=== PATIENT | male | born 1945 | race Caucasian/White ===

== ENCOUNTER → 2023-12-18 11:05 | Outpatient (REF) | payer MEDICARE, SELFPAY ==
[2023-12-18 12:05] LABS: % Basophils 0.9 % (0-2); % Eosinophils 4.6 % (0-6); % Immature Granulocytes 0.9 % (0-0.5); % Lymphocytes 18.6 % (20.5-51.1); % Monocytes 11.8 % (1.7-9.3); % Neutrophils 63.2 % (42.2-75.2); Absolute Basophils 0.1 10^3/uL (0-0.2); Absolute Eosinophils 0.3 10^3/uL (0-0.7); Absolute Immature Granulocytes 0.1 10^3/uL (0-0.05); Absolute Lymphocytes 1.3 10^3/uL (1.2-3.4); Absolute Monocytes 0.8 10^3/uL (0.1-0.6); Absolute Neutrophils 4.3 10^3/uL (1.4-6.5); Hemoglobin 12.1 g/dL (13.0-18.0); Mean Corp Hgb Conc. 33.6 g/dL (33.0-37.0); Mean Corpuscular Hgb 33.9 pg (27.0-31.0); Mean Corpuscular Volume 100.8 fL (80.0-94.0); Mean Platelet Volume 9.4 fL (7.4-10.4); Nucleated Red Blood Cells % 0 % (-); Platelet Count 240 10^3/uL (130-400); Red Blood Cell Count 3.57 10^6/uL (4.70-6.10); Red Cell Dist. Width 13.1 % (11.5-14.5); White Blood Cell Count 6.8 10^3/uL (4.8-10.8)
[2023-12-18 12:11] LABS: Urine Albumin Trace (Neg - Trace); Urine Bilirubin Negative (Negative); Urine Character Clear (Clear); Urine Color Yellow; Urine Glucose Negative (Negative); Urine Ketone Negative (Negative); Urine Leukocyte 2+ (Negative); Urine Nitrite Negative (Negative); Urine Occult Blood Negative (Negative); Urine Specific Gravity 1.015 (<1.030); Urine Urobilinogen Negative (Neg - 1+)
[2023-12-18 12:31] LABS: Urine Bacteria Few (Negative); Urine Red Blood Cell 0-2 /HPF (0-2); Urine Sperm Seen; Urine White Cell 16-20 /HPF (0-5)
[2023-12-18 12:43] LABS: ALT (SGPT) 35 U/L (0-50); AST (SGOT) 31 U/L (17-59); Albumin 3.9 g/dl (3.5-5.0); Alkaline Phosphatase 123 U/L (38-126); Blood Urea Nitrogen 18 mg/dl (9-20); Carbon Dioxide 26 mmol/L (22-30); Chloride 102 mmol/L (98-107); Glucose 135 mg/dl (70-99); HDL Cholesterol 44 mg/dl; LDL Cholesterol, Calculated 64 mg/dl; Sodium 138 mmol/L (135-145); Total Bilirubin 0.5 mg/dl (0.2-1.3); Total Cholesterol 131 mg/dl (50-199); Total Protein 7.4 g/dl (6.3-8.2); Triglyceride 115 mg/dl (10-149); Very Low Density Lipoprotein 23 mg/dl (0-30); eGFR > 60.00
[2023-12-18 12:47] LABS: Potassium 4.3 mmol/L (3.5-5.1)
[2023-12-18 13:16] LABS: Protein/creatinine Ratio 0.4; Urine Protein 55 mg/dl
[2023-12-18 13:20] LABS: Glycohemoglobin (HgbA1c) 6.5 % (4.0-5.6)
[2023-12-18 13:23] LABS: Microalbumin, Random Urine 17.9 mg/dl (0.6-1.7); Microalbumin/creatinine Ratio 134.3 mg/g
== END ==
LOC: REG 11:05
PROVIDERS: ATTENDING PHYSICIAN Family Medicine; FAMILY PHYSICIAN Internal Medicine
DX: E78.2 Mixed hyperlipidemia (principal); E11.69 Type 2 diabetes mellitus with other specified complication; I10 Essential (primary) hypertension; R31.29 Other microscopic hematuria
CPT/HCPCS: 36415; 80053; 80061; 81003; 81015; 82043; 82570; 83036; 84156; 85025

== ENCOUNTER → 2023-12-24 09:38 | Outpatient (REF) | payer MEDICARE, SELFPAY ==
[2023-12-24 10:21] VITALS: BP 172/69; BP_SYST 62
[2023-12-24 10:24] LABS: % Basophils 0.8 % (0-2); % Eosinophils 4.1 % (0-6); % Immature Granulocytes 0.9 % (0-0.5); % Lymphocytes 18.2 % (20.5-51.1); % Monocytes 12.5 % (1.7-9.3); % Neutrophils 63.5 % (42.2-75.2); Absolute Basophils 0.1 10^3/uL (0-0.2); Absolute Eosinophils 0.3 10^3/uL (0-0.7); Absolute Immature Granulocytes 0.1 10^3/uL (0-0.05); Absolute Lymphocytes 1.2 10^3/uL (1.2-3.4); Absolute Monocytes 0.8 10^3/uL (0.1-0.6); Absolute Neutrophils 4.2 10^3/uL (1.4-6.5); Hematocrit 34.8 % (39.0-52.0); Hemoglobin 12.1 g/dL (13.0-18.0); Mean Corp Hgb Conc. 34.8 g/dL (33.0-37.0); Mean Corpuscular Hgb 34.4 pg (27.0-31.0); Mean Corpuscular Volume 98.9 fL (80.0-94.0); Mean Platelet Volume 9.3 fL (7.4-10.4); Nucleated Red Blood Cells % 0 % (-); Platelet Count 213 10^3/uL (130-400); Red Blood Cell Count 3.52 10^6/uL (4.70-6.10); Red Cell Dist. Width 13.2 % (11.5-14.5); White Blood Cell Count 6.5 10^3/uL (4.8-10.8)
[2023-12-24 10:36] LABS: INR 1.06; PT 13.6 Sec (11.4-14.6)
[2023-12-24] MEDS: NSS (PRESERVATIVE FREE) 0.25 ML IV (10:58)
[2023-12-24] MEDS: ATIVAN 0.5 MG IV (10:58)
[2023-12-24 11:32] LABS: ALT (SGPT) 30 U/L (0-50); AST (SGOT) 25 U/L (17-59); Albumin 3.9 g/dl (3.5-5.0); Alkaline Phosphatase 117 U/L (38-126); Blood Urea Nitrogen 17 mg/dl (9-20); Calcium 8.7 mg/dl (8.4-10.2); Carbon Dioxide 24 mmol/L (22-30); Chloride 108 mmol/L (98-107); Glucose 143 mg/dl (70-99); Potassium 4.5 mmol/L (3.5-5.1); Sodium 138 mmol/L (135-145); Total Bilirubin 0.3 mg/dl (0.2-1.3); Total Protein 7.2 g/dl (6.3-8.2); eGFR > 60.00
[2023-12-24 11:47] VITALS: BP 150/73; BP_SYST 61
[2023-12-25 11:48] LABS: Beta-2-Microglobulin 3.3 mg/L (<=3.0)
[2023-12-26 12:40] LABS: Alpha 2 Globulin 0.97 g/dL (0.48-1.05); Free Kappa Light Chains,Quant 33.32 mg/L (3.30-19.40); Free Lambda Light Chains,Quant 110.44 mg/L (5.71-26.30); IgA 176 mg/dL (68-408); IgG 885 mg/dL (768-1632); IgM 1011 mg/dL (35-263); Immunofixation Electrophoresis IFE Done; Total Protein-Electrophoresis 7.2 g/dL (6.3-8.2)
[2023-12-26 23:30] LABS: Myelin Assoc Glycoprotein Ab 9356 TU (0-999)
== END ==
LOC: RADI 09:38
PROVIDERS: ATTENDING PHYSICIAN Internal Medicine Hematology & Oncology; FAMILY PHYSICIAN Family Medicine
DX: C83.00 Small cell B-cell lymphoma, unspecified site (principal); D47.2 Monoclonal gammopathy; D68.8 Other specified coagulation defects
CPT/HCPCS: 88305; 88311; 88312; 36415; 38222; 77012; 80053; 82232; 82784; 83516; 83521; 84155; 84165; 85025; 85610; 86334; 88313; 88341; 88342

== ENCOUNTER → 2023-12-25 16:13 | Outpatient (REF) | payer MEDICARE, SELFPAY | LOC: RAD 16:13 | PROVIDERS: ATTENDING PHYSICIAN Internal Medicine Hematology & Oncology; FAMILY PHYSICIAN Family Medicine | DX: D47.2 Monoclonal gammopathy (principal); C88.0 Waldenstrom macroglobulinemia | CPT/HCPCS: 71250; 74176 ==

== ENCOUNTER 2024-05-07 12:52 | Outpatient (RCR) | payer MEDICARE, SELFPAY | END 2024-05-07 23:59 | disposition home or self-care (01) | LOC: RPT 12:52 | PROVIDERS: ATTENDING PHYSICIAN Family Medicine | DX: R26.9 Unspecified abnormalities of gait and mobility (principal); R53.1 Weakness; M47.816 Spondylosis without myelopathy or radiculopathy, lumbar region | CPT/HCPCS: 97110; 97112; 97162; 97535 ==

== ENCOUNTER 2024-05-07 22:55 | Inpatient (IN) | payer MEDICARE, SELFPAY ==
[2024-05-07] VITALS (9 sets, daily range): BP systolic 79–146; BP diastolic 50–130; BMI 43.5
--- NOTE | 2024-05-07 19:49 | ED.GENMED ---
History of Present Illness
General
Chief Complaint: Heart Rate Problem
Source: patient
Exam Limitations: none
Time Seen by Provider: 05/07/24 19:48
Nursing documentation reviewed up to this point in time: agreed with
History of Present Illness
History of Present Illness:
The patient is a very nice 79-year-old man with a past medical history of hypertension and hyperlipidemia who went to physical therapy this morning and complained of not feeling well. The therapist there checked his vital signs and found his heart
rate to be elevated and irregular, and he was directed to be evaluated by his primary care doctor. His primary care doctor found for his heart rate to be elevated and irregular and referred him to the emergency department. On arrival, patient's
EKG shows atrial fibrillation with RVR. Patient complains of not feeling well. He complains of palpitations and increased difficulty with his balance for the last 2 to 3 days. He reports he has never had a history of A-fib before. Patient
reports he is just on baby aspirin but no other blood thinner. He denies headache, weakness and vision changes.
Past History
Past History
ED Past Medical History: HTN, Hypercholesterolemia, NIDDM and Other (Anxiety, depression, arthritis, pneumonia, BPH, pericarditis, neuropathy)
Social History
Tobacco: Former smoker
Alcohol: Other
Drug: None
Personal:
Living: with family
Employment: Retired
Family History
Family History: Other
Review of Systems
Review of Systems
Allergies reviewed?: Yes
All Other Systems: ROS reviewed and negative except as documented in HPI and ROS
Constitutional: Reports no symptoms
EENT: Reports no symptoms
Respiratory: Reports no symptoms
Cardiac: Reports palpitations
ABD/GI: Reports no symptoms
: Reports no symptoms
Musculoskeletal: Reports no symptoms
Skin: Reports no symptoms
Neurological: Reports dizzy
Endocrine: Reports no symptoms
Hematologic/Lymphatic: Reports no symptoms
Psychiatric: Reports no symptoms
Phy Exam
Physical Exam
Physical Exam:
Physical Exam
General: no apparent distress, not acutely ill
Neck: supple. no meningeal signs. normal psoterior pharynx
Heart: Tachycardic, irregular
Lungs: no acute respiratory distress. clear bilaterally
Abdomen: normal bowel sounds. not tender. no CVAT
Neuro: alert and oriented. no focal neurological deficits
Skin: no rash
Psychiatric: well kept. interactive and cooperative
Extremities: no edema. no calf tenderness. negative homans. good distal pulses
Course
Orders/Labs/Results
Orders:
Orders
05/07/24 19:34
EKG [Electrocardiogram (*1)] Urgent
Reason for Study: Tachycardia
EKG- Treatment ONCE
05/07/24 19:59
Diltiazem HCl [Cardizem] 5 mg IV NOW STA
05/07/24 20:00
Diltiazem 125 mg/125 ml Nss [Cardizem] 125 mg in 125 ml IV PER PROTOCOL
Initial dose in mg/hr, then titrate:: 5
Titrate to keep:: Heart rate 80-100 bpm
Titrate by mg/hr:: 5 mg/hr
Frequency of titrations (minutes):: 15
Maximum dose in mg/hr:: 15
05/07/24 20:03
CT Head W/o Iv Contrast Urgent
Comment:
Reason For Exam: dizziness
CBC/With Diff [Complete Blood Count/With Diff] Urgent
PTT Urgent
Prothrombin Time Urgent
Troponin I Urgent
05/07/24 20:34
Comprehensive Metabolic Panel Urgent
05/07/24 22:00
Flush (0.9% Sodium Chloride) [Flush (Nss)] See Dose Instructions IV PER PROTOCOL
05/07/24 22:21
Heparin 4,000 units IV NOW STA
Pharmacy Request to Place See Dose Instructions PO NOW STA
Discontinue all Active Warfarin orders?: Yes
Nursing to Place Non Medication Order As Directed
Physician Order: PTT 6 hours after initial start of Heparin infusion
05/07/24 22:30
Heparin 88483 Units/250 ml 25,000 units in 250 ml IV PER PROTOCOL
Weight to be used for heparin protocol in kilograms (kg):: 125.9
Protocol:: Cardiac Tx/Acute Coronary
PTT Goal Range to be used:: PTT 73 to 111 seconds
Order type:: Initial
INITIAL Infusion Dose (UNITS/KG/hr) & then follow protocol:: 12 units/kg/hr
Infusion Dose in UNITS/hr & then follow protocol (UNITS/hr):: 1,000
INFUSION RATE in mL/hr & then follow protocol (mL/hr):: 10
PTT less than or equal to 64 seconds:: Increase rate by 200 units/hr (+ 2 mL/hr)
PTT 64.1 to 72.9 seconds:: Increase rate by 100 units/hr (+ 1 mL/hr)
PTT 73 to 111 seconds:: Target Range. No change in rate.
PTT 111.1 to 130.9 seconds:: Decrease rate by 100 units/hr (- 1 mL/hr)
PTT 131 to 199.9 seconds:: HOLD for 1 hr. Then decrease rate by 200 units/hr (- 2 mL/hr)
PTT greater than or equal to 200 seconds:: HOLD for 2 hrs & Notify Provider. Then decrease by 200 units/hr (-
2 mL/hr)
Lab follow-up:: Each change, PTT q6h until 2 consecutive are therapeutic. Then PTT
daily.
05/07/24 23:[address] See Dose Instructions IV DIRECTED
Abnormal Lab Results
05/07/24 05/07/24
20:03 20:34
RBC 3.72 L 10^6/uL
(4.70-6.10)
Hct 36.0 L %
(39.0-52.0)
MCV 96.8 H fL
(80.0-94.0)
MCH 34.9 H pg
(27.0-31.0)
Absolute Monos (auto) 1.1 H 10^3/uL
(0.1-0.6)
Monocytes % 12.4 H %
(1.7-9.3)
Glucose 104 H mg/dl
(70-99)
05/07/24 20:03
05/07/24 20:34
Vital Signs
Initial and Last Documented VS:
Initial Vital Signs
Temp Pulse Resp BP Pulse Ox
98.5 F 148 19 120/93 96
05/07/24 19:37 05/07/24 19:37 05/07/24 19:37 05/07/24 19:37 05/07/24 19:37
Last Documented Vital Signs
Temp Pulse Resp BP Pulse Ox
98.5 F 107 18 130/80 96
05/07/24 19:37 05/07/24 22:00 05/07/24 22:00 05/07/24 21:50 05/07/24 19:37
MDM/Problems Addressed
Differential Diagnosis Includes:
New onset A-fib with RVR, sinus tachycardia, CVA
MDM/Problems Addressed:
Patient presents with subacute dizziness and acute palpitations and tachycardia
Chronic conditions affecting care:
Given patient's history of hypertension and hyperlipidemia, he is at increased risk of developing heart disease
Chronic conditions affecting care: HTN
*Pulse Oximetry
Patient hypoxic: no
*EKG
Interpreted by ED Provider?: Yes
Interpretation: abnormal
Comparison EKG: changes noted
Rate: tachycardiac
Rhythm: a-fib
[place]: normal axis
Interval: normal interval
QRS Pattern: normal QRS
Ischemia: no ischemia
*Hand Spring Repairer Interpretation
Rate: tachycardiac
Interpretation: abnormal
Rhythm: a-fib
*Critical Care Note
Total Time (30-74mins, 75-104mins- exclusive of procedures): 55 min
comment:
55 minutes of critical care given to the patient including frequent reassessments of his heart rate and blood pressure, reviewing his lab work, EKG and counseling the patient and about starting blood thinners and educating them about atrial
fibrillation
Data Reviewed
Review of Other/Old Records Reveals: Testing (Cardiac echo reviewed by me from 2021 which shows severe dilation of bilateral atrium)
Source: patient and spouse
ED Attending Note
-
Portions of this chart may have been created with voice recognition software.� Occasional wrong word or��sound alike� substitutions may have occurred due to the inherent limitations of voice recognition software.
Discharge Plan
Departure
Patient Disposition: Admit
Date of Disposition: 05/07/24
Time of Disposition: 20:09
Admit to: Telemetry
Presentation/result/management discussed w/ accepting MD/DO: Hospitalist
Patient with high blood pressure during this ER visit?: No
Condition: Good
Covid-19: Not Applicable
Discharge Problem:
Acute ataxia, New onset a-fib, Atrial fibrillation with RVR
Prescriptions:
No Action
citalopram 10 MG tablet
10 mg PO DAILY
aspirin 81 MG tablet,delayed release (DR/EC)
81 mg PO DAILY
tamsulosin 0.4 MG capsule
0.4 mg PO HS
fluticasone propionate 1 SPRAY spray,suspension
1 spray intranasal DAILYPRN PRN (Reason: congestion/ allergies )
rosuvastatin 20 MG tablet
20 mg PO DAILY
glimepiride 1 MG tablet
1 mg PO DAILY Qty: 30 0RF
amlodipine 5 MG tablet
5 mg PO DAILY Qty: 30 0RF
furosemide 40 mg Tablet
40 mg PO DAILY
trospium 20 mg Tablet
20 mg PO HS
ibuprofen 200 mg Tablet
800 mg PO Q8HPRN PRN (Reason: mild pain)
vitamin K2 (MK-4) 500 mcg tablet
500 mcg PO DAILY
Interventions
Interventions:
*Risk Screen - Suicide Last Done: 05/07/24 19:37
*General Assessment Last Done: 05/07/24 19:37
ED- Cardiac Assessment Last Done: 05/07/24 20:17
ED- Pulmonary Assessment Last Done: 05/07/24 20:17
Discharge Date and Time
Print Language: PORTUGUESE
[2024-05-07] MEDS: CARDIZEM 5 MG IV (20:06)
[2024-05-07] MEDS: CARDIZEM 125 IV (20:09)
[2024-05-07 20:10] LABS: % Basophils 0.8 % (0-2); % Eosinophils 4.5 % (0-6); % Immature Granulocytes 0.5 % (0-0.5); % Lymphocytes 21.1 % (20.5-51.1); % Monocytes 12.4 % (1.7-9.3); % Neutrophils 60.7 % (42.2-75.2); Absolute Basophils 0.1 10^3/uL (0-0.2); Absolute Eosinophils 0.4 10^3/uL (0-0.7); Absolute Lymphocytes 1.8 10^3/uL (1.2-3.4); Absolute Monocytes 1.1 10^3/uL (0.1-0.6); Absolute Neutrophils 5.2 10^3/uL (1.4-6.5); Mean Corp Hgb Conc. 36.1 g/dL (33.0-37.0); Mean Corpuscular Hgb 34.9 pg (27.0-31.0); Mean Corpuscular Volume 96.8 fL (80.0-94.0); Mean Platelet Volume 9.4 fL (7.4-10.4); Nucleated Red Blood Cells % 0 % (-); Platelet Count 256 10^3/uL (130-400); Red Blood Cell Count 3.72 10^6/uL (4.70-6.10); Red Cell Dist. Width 13.1 % (11.5-14.5); White Blood Cell Count 8.5 10^3/uL (4.8-10.8)
[2024-05-07 20:24] LABS: APTT 25.3 Sec (23.4-35.0); INR 1.06; PT 13.9 Sec (11.4-14.6)
[2024-05-07 20:33] LABS: Troponin I < 0.012 ng/ml
[2024-05-07 21:01] LABS: ALT (SGPT) 21 U/L (0-50); AST (SGOT) 23 U/L (17-59); Alkaline Phosphatase 107 U/L (38-126); Blood Urea Nitrogen 17 mg/dl (9-20); Carbon Dioxide 24 mmol/L (22-30); Chloride 104 mmol/L (98-107); Glucose 104 mg/dl (70-99); Potassium 4.1 mmol/L (3.5-5.1); Sodium 136 mmol/L (135-145); Total Bilirubin 0.5 mg/dl (0.2-1.3); Total Protein 7.1 g/dl (6.3-8.2); eGFR > 60.00
--- NOTE | 2024-05-07 21:58 | HPS.HSE ---
Addendum entered and electronically signed by Guido De Los Santos DO 05/07/24 23:07:
Patient seen and examined independently. Agree with findings and plan as set forth by JOSE LUIS Alford.
Patient is an 79y M with PMH significant for hypertension, DM-II, BRANDON on CPAP and new diagnosis / work-up of dementia who presented to ED for evaluation of rapid heart rate. Patient was in outpatient PT today when he was noted to have
tachycardia and hypotension. He was referred to his PCP who evaluated him and appreciated irregular tachycardia by exam. Patient was then referred to the ED where he was found to be in A-Fib with rapid ventricular response. Patient denies any
prior history of A-Fib.
Patient denies any chest pain or palpitations. He does endorse dizziness sensation and some dyspnea with activity.
At present, patient is resting comfortably in the D with no complaints.
Ass:
Atrial Fibrillation with Rapid Ventricular Response - New
Dizziness secondary to the above
DM-II
Benign Hypertension
Dyslipidemia
Morbid Obesity
BRANDON on CPAP
Pulmonary Fibrosis
BPH
Mild / Early Dementia
Plan:
Admit for further evaluation and treatment.
Continue IV Cardizem and IV heparin started in the ED.
Cardiology evaluation.
Update Echo.
Continue outpatient medications - with holding parameters for BP medications.
Follow glucose and cover with SSI as needed.
CPAP nightly.
Original Note:
Family Physician
-
Family Physician: Jose Lezama
Chief Complaint
-
weakness
sob
History of Present Illness
79-year-old man with a past medical history of hypertension and hyperlipidemia, GERD, anxiety, type 2 DM, CKD, BRANDON, pulm fibrosis, BPH, pericarditis, anxiety presented to us with generalized weakness, sob and dizzy. he was at the physical therapy
this morning for ambulatory dysfunction. The therapist there checked his vital signs and found his heart rate to be elevated and irregular, and low BP. he was directed to be evaluated by his primary care doctor. His primary care doctor found for
his heart rate to be elevated and irregular and referred him to the emergency department. denied palpitation, chest pain. denied VAZQUEZ. denied abdominal pain,n ,v,d. denied dysuria or hematuria. On arrival, patient's EKG shows atrial fibrillation with
RVR. he was initiated on heparin drip and Cardizem drip.
admitting for further management.
Medical History
Past Medical History
Past Medical History: Reports Other
Additional Past Medical History:
HTn
HLD
GERD
anxiety
type 2 Dm
CKD
BRANDON
BPH
PF
Past Surgical History: Reports Other
Additional Past Surgical History:
b/l cataract surgery
b/l knee surgery
basal cell carcinoma resection
spine surgery
Social History
Tobacco: Former Smoker
Alcohol: Daily (10oz of whiskey)
Drug: None
Personal:
Living: With Family
Family History
Family History: Not pertinent
Allergies / Home Medications
Allergies reflects when Allergies were last updated in [employer].
Home Medications with original date entered in [employer]
Allergy/Medication List:
Allergies
Allergy/AdvReac Type Severity Reaction Status Date / Time
Sulfa (Sulfonamide Allergy Vomiting Verified 05/07/24 19:44
Antibiotics)
Home Medications
aspirin 81 mg tablet,delayed release 81 mg PO DAILY Blood clot prevention/tx 03/23/22
citalopram 10 mg tablet 10 mg PO DAILY Mental Health/Anxiety 03/23/22
fluticasone propionate 50 mcg/actuation nasal spray,suspension 1 spray intranasal DAILYPRN PRN congestion/ allergies 03/23/22
rosuvastatin 20 mg tablet 20 mg PO DAILY High cholesterol 03/23/22
tamsulosin 0.4 mg capsule 0.4 mg PO HS Urinary issue 06/16/22
amlodipine 5 mg tablet 5 mg PO DAILY #30 tabs 03/26/22
glimepiride 1 mg tablet 1 mg PO DAILY Diabetes #30 tabs 03/26/22
furosemide 40 mg tablet 40 mg PO DAILY 12/24/23
ibuprofen 200 mg tablet 800 mg PO Q8HPRN PRN mild pain 05/07/24
trospium 20 mg tablet 20 mg PO HS 05/07/24
vitamin K2 (MK-4) 500 mcg PO DAILY 05/07/24
Review of Systems
-
Constitutional: Reports No Symptoms
EENT: Reports No Symptoms
Respiratory: Reports Trouble Breathing
Cardiac: Reports No Symptoms
Abdomen/GI: Reports No Symptoms
: Reports No Symptoms
Musculoskeletal: Reports No Symptoms
Skin: Reports No Symptoms
Neurological: Reports Dizzy and Weakness
Endocrine: Reports No Symptoms
Hematologic/Lymphatic: Reports No Symptoms
Psych: Reports No Symptoms
Physical Exam
Vital Signs
Vital Signs
Temp Pulse Resp BP Pulse Ox
98.5 F 158 19 103/75 96
05/07/24 19:37 05/07/24 20:15 05/07/24 20:15 05/07/24 20:06 05/07/24 19:37
Physical Exam
General: Well Developed, Well Nourished and No Apparent Distress
HEENT: NormoCephalic, Moist mucous membranes and Atraumatic
Respiratory: Clear
Cardiac: Irregular Rhythm and Tachycardia; No Murmur or Rub
GI: Soft, Non Tender, Non Distended and Normal Bowel Sounds; No Organomegaly
Rectal: Deferred by Provider
Musculoskeletal: No Clubbing, No Cyanosis and No Edema
Skin: No Rash
Neuro: Nonfocal/grossly intact
Laboratory Results
-
05/07/24 20:03
05/07/24 20:34
Laboratory Results
PT 13.9 Sec (11.4-14.6) 05/07/24 20:03
INR 1.06 05/07/24 20:03
APTT 25.3 Sec (23.4-35.0) 05/07/24 20:03
Total Bilirubin 0.5 mg/dl (0.2-1.3) 05/07/24 20:34
AST 23 U/L (17-59) 05/07/24 20:34
ALT 21 U/L (0-50) 05/07/24 20:34
Alkaline Phosphatase 107 U/L (38-126) 05/07/24 20:34
Troponin I < 0.012 ng/ml 05/07/24 20:03
Data Reviewed
-
CT Scan: Report Reviewed by me
Lab Data: Labs Reviewed by me
Impression/Plan
-
#ambulatory dysfunction/dizzy
-PT/OT
-orthostatics
-CT head negative
#atrial fib with RVR
-heparin drip and Cardizem drip
--will repeat echo
-cardiology consulted
#DM type 2
-glimepiride continued
-sliding scale
-CHO diet
#HLD
-statin continued
#BPH
-TROUBLE OPERATOR Flomax and Trospium
#HTN
-Norvasc,Lasix continued with hold parameter
#anxiety
-citalopram continued
DVT PPx - hep
FULL CODE
[2024-05-07] MEDS: HEPARIN 4000 UNITS IV (23:01)
[2024-05-07] MEDS: HEPARIN 25000 UNITS/250 ML IV (23:05)
[2024-05-08] VITALS (15 sets, daily range): BP systolic 93–149; BP diastolic 55–129; PULSE 81–150; O2SAT 95; BMI 43.5
--- NOTE | 2024-05-08 | RESPNOTE ---
PT was ordered CPAP for HS use as he has BRANDON and uses CPAP at home. PT uses nasal pillows at home so I used our nasal mask as it is the closest thing to nasal pillows that we have. PT was placed on it, but a few moments later declined therapy all
together, stating that he could not tolerate the mask and stated that he would have his bring his in today for HS use here.
[2024-05-08 05:15] LABS: Hematocrit 34.1 % (39.0-52.0); Hemoglobin 12.2 g/dL (13.0-18.0); Mean Corp Hgb Conc. 35.8 g/dL (33.0-37.0); Mean Corpuscular Hgb 34.9 pg (27.0-31.0); Mean Corpuscular Volume 97.4 fL (80.0-94.0); Mean Platelet Volume 9.7 fL (7.4-10.4); Platelet Count 239 10^3/uL (130-400); Red Cell Dist. Width 13.2 % (11.5-14.5); White Blood Cell Count 8.5 10^3/uL (4.8-10.8)
[2024-05-08 05:29] LABS: APTT 30.2 Sec (23.4-35.0)
[2024-05-08 05:48] LABS: Blood Urea Nitrogen 14 mg/dl (9-20); Calcium 8.8 mg/dl (8.4-10.2); Carbon Dioxide 21 mmol/L (22-30); Estimated Creatinine Clearance 83 ml/min; HDL Cholesterol 33 mg/dl; Potassium 4.4 mmol/L (3.5-5.1); Total Cholesterol 128 mg/dl (50-199); eGFR > 60.00
[2024-05-08 05:56] LABS: Chloride 105 mmol/L (98-107); Glucose 137 mg/dl (70-99); LDL Cholesterol, Calculated 46 mg/dl; Sodium 135 mmol/L (135-145); Triglyceride 247 mg/dl (10-149); Very Low Density Lipoprotein 49 mg/dl (0-30)
--- NOTE | 2024-05-08 06:05 | PTCARENOTE ---
Pt. received from ED. Pt. AOx3, arriving with heparin and cardizem gtts. Tele monitor showing AFib RVR in 150s-160s. After pt. settled in bed tele monitor showing Afib 120s-140s. All other VS WNL. Orthostatics conducted. Pt. states no dizziness or
pain at this time. No overnight events. Continuing to monitor pt.
[2024-05-08 06:15] LABS: TSH 5.97 uIU/ml (0.47-4.68)
[2024-05-08 07:02] LABS: Glucose - Point of Care 146 mg/dl (70-99)
[2024-05-08] MEDS: CARDIZEM 125 IV (07:40)
[2024-05-08] MEDS: NOVOLOG FLEXPEN-LOW RESISTANCE SC (07:45)
[2024-05-08 08:37] LABS: Glycohemoglobin (HgbA1c) 6.9 % (4.0-5.6)
--- NOTE | 2024-05-08 08:41 | CARDSERVLU ---
Echocardiogram with [facility] completed after protocol screening completed. Allergies verified.
Patent IV site: _Right arm 20 g PC site clear____
IV site flushed with 0.9% NaCl pre and post administration.
Diluted bolus method utilized to enhance visualization of ventricular powell.
Total volume given: _4___ mL
Patient tolerated all procedures well without complications.
--- NOTE | 2024-05-08 08:55 | W.PN.HOSP.TC ---
Today's Communication/Plan
-
see bold
Assessment / Plan
Assessment / Plan
HPI: 79y M with PMH significant for hypertension, DM-II, BRANDON on CPAP and new diagnosis / work-up of dementia who presented to ED for evaluation of rapid heart rate. Patient was in outpatient PT today when he was noted to have tachycardia and
hypotension. He was referred to his PCP who evaluated him and appreciated irregular tachycardia by exam. Patient was then referred to the ED where he was found to be in A-Fib with rapid ventricular response.
#New onset rapid atrial fibrillation
Echo: LV ejection fraction is 60-65%. Normal regional wall motion.
Normal right ventricular size and function.
Aortic sclerosis without stenosis.
Currently on heparin drip, Cardizem drip
Appreciate cardiology input, plan for FIONA guided cardioversion tomorrow
Plan to change heparin drip to Eliquis tonight
#Subclinical hypothyroidism
TSH elevated at 5.97, free T4 normal
Would recommend starting low-dose Synthroid once heart rate is controlled
#Benign essential hypertension
Hold home amlodipine
Monitor blood pressure on Cardizem
#Abnormal CT
Appreciate neurology input, hypodensity on the right subcortical region likely is chronic, and most likely benign finding
Not supportive for stroke
#New diagnosis of dementia
Appreciate neurology input, does not recommend memory aid medications at this point
Outpatient follow-up
#Type 2 diabetes
A1C 6.9
Continue home glimepiride, sliding scale insulin, carb controlled diet
#Hyperlipidemia
Continue statin
#BPH
Continue Flomax and trospium
#Obesity due to excess calories
Affects all aspects of care
DVT prophylaxis�heparin drip, followed by Eliquis
Full code
Total time spent to see the patient on the floor, examine the patient, review data and lab results, discuss treatment plan with patient, nursing staff around 50 minutes.
Physical Exam
General: Morbidly obese, no acute distress
HEENT: Normocephalic, Atraumatic, EOMI, MMM
Respiratory: Clear to Auscultation bilaterally
Cardiac: Tachycardic rate, irregular rhythm
GI: Soft, Nontender, Nondistended, Normal Bowel Sounds
Extremities: No Clubbing, Cyanosis, or Edema
Neuro: Nonfocal/Grossly Intact
Psych: Calm, Cooperative
Derm: No Visible lesions
Anticipated Discharge: 24 - 48 hours
Subjective/Interval History
-
Date of Service: May 08, 2024
Patient denies chest pain, shortness of breath, palpitations. No lightheadedness, no dizziness. No fever, no vomiting.
Objective Data
-
Labs:
Laboratory Results
05/07/24 05/07/24 05/08/24
20:34 23:00 04:43
WBC 8.5
Hgb 12.2 L
Hct 34.1 L
Plt Count 239
APTT 25.0 30.2
Sodium 136 135
Potassium 4.1 4.4
Chloride 104 105
Carbon Dioxide 24 21 L
BUN 17 14
Creatinine 1.0 0.9
Glucose 104 H 137 H
Calcium 9.0 8.8
Total Bilirubin 0.5
AST 23
ALT 21
Alkaline Phosphatase 107
05/08/24
11:45
WBC
Hgb
Hct
Plt Count
APTT Pending
Sodium
Potassium
Chloride
Carbon Dioxide
BUN
Creatinine
Glucose
Calcium
Total Bilirubin
AST
ALT
Alkaline Phosphatase
Vital Signs:
Vital Signs
Temp Pulse Resp BP Pulse Ox
98.4 F 110 20 106/61 97
05/08/24 06:59 05/08/24 05:15 05/08/24 06:59 05/08/24 04:30 05/08/24 06:59
I&O
05/07/24 05/08/24 05/09/24
06:59 06:59 06:59
Intake Total 150 / 150
Balance 150 / 150
--- NOTE | 2024-05-08 09:32 | CON.CAR ---
Addendum entered and electronically signed by Se Renee MD 05/08/24 10:42:
Patient seen and examined in collaboration with NURSE PRACTITIONER MANAGER; agree with below.
-79-year-old male with previous pericarditis, hypertension, diabetes, hyperlipidemia, morbid obesity, and significant daily alcohol use admitted with new onset atrial fibrillation with RVR.
-Echocardiogram today revealed normal LVEF of 60-65% and no significant valvular disease.
-Mild abnormality noted on head CT; recommend Neurology consultation for clearance of anticoagulation.
-Patient is currently on a heparin drip; continue for now and transition to NOAC once cleared by Neurology.
-Will plan for FIONA/cardioversion tomorrow morning; NPO after midnight.
-Likely discharge to home tomorrow.
Original Note:
Consultation
Consultation Request
Date/Time Consultation Requested: 05/07/24 1943
Date/Time Consultation Performed: 05/08/24 0930
Requesting Provider: Arabella Ovalles
Performing Provider: Sejal AMAYA for Dr. Renee
Reason for Consultation: AFIB
Medical History
-
Chief Complaint: arrhythmia, overall feeling unwell
History of Present Illness:
79 y/o male with obesity, hx pericarditis, DM2, fatty liver, splenomegaly, hypertension, BPH, HLD, BRANDON on CPAP who is here for evaluation after he was in PT and reported not feeling well overall and was noted to be tachycardic with BP on lower end.
He went to see his PCP, who sent him to the ER. He is seen to have afib with RVR, which is a new diagnosis. He is in no distress at the time of my assessment. He is on a diltiazem drip at 10 mg/hr. Of note, patient has some memory impairment.
Past Medical History
Past Medical History: HTN, Hypercholesterolemia, NIDDM and Other (as above)
Social History
Tobacco: Former Smoker
Alcohol: Daily (two whiskey drinks per day)
Family History
Family History: Reviewed & Not Pertinent
Allergies / Home Medications
Allergy/AdvReac Type Severity Reaction Status Date / Time
Sulfa (Sulfonamide Allergy Vomiting Verified 05/07/24 19:44
Antibiotics)
�Medication �Instructions �Recorded �Confirmed �Type
aspirin 81 mg tablet,delayed 81 mg PO DAILY Blood clot 03/23/22 05/07/24 History
release prevention/tx
citalopram 10 mg tablet 10 mg PO DAILY Mental 03/23/22 05/07/24 History
Health/Anxiety
fluticasone propionate 50 1 spray intranasal DAILYPRN PRN 03/23/22 05/07/24 History
mcg/actuation nasal congestion/ allergies
spray,suspension
rosuvastatin 20 mg tablet 20 mg PO DAILY High cholesterol 03/23/22 05/07/24 History
tamsulosin 0.4 mg capsule 0.4 mg PO HS Urinary issue 03/23/22 05/07/24 History
amlodipine 5 mg tablet 5 mg PO DAILY #30 tabs 03/26/22 05/07/24 Rx
glimepiride 1 mg tablet 1 mg PO DAILY Diabetes #30 tabs 03/26/22 05/07/24 Rx
furosemide 40 mg tablet 40 mg PO DAILY Fluid 12/24/23 05/07/24 History
Retention/Swelling
ibuprofen 200 mg tablet 800 mg PO Q8HPRN PRN mild pain 05/07/24 05/07/24 History
trospium 20 mg tablet 20 mg PO HS Urinary Issue 05/07/24 05/07/24 History
vitamin K2 (MK-4) 500 mcg PO DAILY Supplement 05/07/24 05/07/24 History
Review of Systems
-
History Source: Patient and Other (and chart)
All other systems: Negative unless noted (overall unwell feeling - no CP, SOB, or palpitations)
Physical Exam
Vital Signs
Temp Pulse Resp BP Pulse Ox
98.4 F 110 20 106/61 97
05/08/24 06:59 05/08/24 05:15 05/08/24 06:59 05/08/24 04:30 05/08/24 06:59
Lab Results
05/08/24 04:43
05/08/24 04:43
Troponin I < 0.012 ng/ml 05/07/24 20:03
Physical Exam
General: Well Developed and No Apparent Distress
HEENT: Normocephalic and Anicteric
Respiratory: Clear and Non Labored Respirations
Cardiac: Irregular Rhythm
Musculoskeletal: No Edema
Skin: Warm and Dry
Neuro: AO x 3
Psych: Calm
Impression / Plan
-
Afib with RVR:
-new diagnosis; type and onset are unclear
-on IV diltiazem- continue for now. This medicine requires intensive monitoring. Transition to PO this admit, but will continue for now.
-[id number] score is 4 for age, HTN, and DM. Currently on heparin drip- this also requires intensive monitoring- transition to [facility] this admit- c/s CM for pricing.
-TSH is elevated, free T4 pending- management per primary
-Head CT abnormal as noted- we will consult neurology
-consider FIONA/CV in AM pending neuro consult
Obesity:
-would benefit from weight loss
BRANDON:
-reports compliance with CPAP- continue
Daily ETOH:
-I told him best practice is no ETOH moving forward
HTN:
-monitor on dilt drip
Data Reviewed
-
EKG: Tracing Personally Visualized and interpreted (AFIB with RVR [address] Scan: Report Reviewed by me (head: No evidence for acute intracranial hemorrhage. Leukomalacia is present. In the white matter lateral to the anterior body of the right lateral ventricle, there is a slightly greater degree of decreased density
when compared to the left. )
Medical Tests (Nuc Med, Echo etc): Report Reviewed by me (Echo 05/08/24: LV ejection fraction is 60-65%. Normal regional wall motion. Normal right ventricular size and function. Aortic sclerosis without stenosis.)
Labs: Labs Reviewed by me
[2024-05-08] MEDS: LASIX 40 MG PO (09:42)
[2024-05-08] MEDS: CRESTOR 20 MG PO (09:42)
[2024-05-08] MEDS: ASPIR LOW (ENTERIC COATED) 81 MG PO (09:42)
[2024-05-08] MEDS: CELEXA 10 MG PO (09:43)
[2024-05-08] MEDS: AMARYL 1 MG PO (09:43)
--- NOTE | 2024-05-08 10:55 | W.PN.UPDATE ---
Update Note
Progress Note Update
I attempted to call to give update, but no answer. Left VM to call back.
[2024-05-08 11:01] LABS: Glucose - Point of Care 158 mg/dl (70-99)
--- NOTE | 2024-05-08 11:16 | CM ---
CM following for DC planning needs.
Met w/ patient at bedside to complete initial assessment.
Pt. reports that he resides with spouse in a 2nd story home. The living arrangements are on 1 level. The home is accessible either via FF of stairs or a ramp. Son/DIL live on the property in a separate house.
Pt. is functionally indep. w/ ADLs, mobility without the us eof any assisted device. There are no other DME in the home.
Pt. has Rx plan and uses [facility] in [place] for prescription needs.
Anticipated DC plan is for home, no needs.
CM to follow.
[2024-05-08 12:03] LABS: Free T4 1.19 ng/dl (0.78-2.19)
[2024-05-08 12:11] LABS: APTT 35.2 Sec (23.4-35.0)
[2024-05-08] MEDS: NOVOLOG FLEXPEN-LOW RESISTANCE 1 UNITS SC ×2 (12:38→18:02)
--- NOTE | 2024-05-08 13:19 | CON.NEURO4 ---
Consultation - Neurology 4
-
CONSULTING PHYSICIAN: Aung Cary
REFERRING PHYSICIAN: Cardiology
DICTATED BY: Aung Cary
DATE/TIME OF REQUEST: 05/08/24
DATE/TIME OF CONSULTATION: 05/08/24
Reason for Consultation: Abnormal CT head, presenting with new atrial fibrillatino
History of Present Illness:
Patient is an 79-year-old male with a past ministry of obesity, diabetes, sleep apnea Alzheimer's dementia presented to hospital due to rapid heart rate noticed by PT during course of routine exercise. This led to evaluation by his primary care
doctor and eventually to the ER where he was found to have atrial fibrillation with rapid ventricular response. At that time patient had endorsed some dizziness and dyspnea although on my interview with the patient he denied any unusual symptoms
yesterday other than fatigue.
He denies any symptoms of speech difficulty or unilateral weakness paresthesia or vertigo or unusual headache. He does relate history of significant short-term memory difficulties and later on his children relayed the information that he has had a
recent diagnosis based on testing of dementia.
Patient currently on diltiazem as well as heparin infusions.
CT head noncontrast had noted likely encephalomalacia in the right subcortical area although not completely able to rule out ischemic stroke.
Past Medical History: New atrial fibrillation, obesity, BRANDON, pulmonary fibrosis, hyperlipidemia, anxiety/depression, mild Alzheimer's dementia
Surgical History: Cataract surgery, bilateral knee replacement, basal cell carcinoma
Family History: There is family history of dementia in patient's mother
Social History: Retired worked in [employer] for a long time and a few other professions, , has adult children
Review of Symptoms:
Patient denies any fever, headache, chest pain, shortness of breath, GI or symptoms.
Physical Exam:
Elderly man appears younger than his stated age no signs of head trauma eyes are clear oropharynx is clear neck supple no masses heart rate irregular, no tachycardia breathing unlabored abdomen is obese soft nontender no lower extremity edema
Neurologic Examination:
The patient is awake, alert and oriented x 3. (He/She) is able to follow commands and answer questions appropriately. There is no aphasia or dysarthria. Memory recall 1/5 after 5 minutes. On cranial nerve assessment, pupils are 3 mm bilateral,
round and reactive to light and accommodation. Visual robertson are full. Extraocular movements are intact. Facial sensations are intact and bilaterally symmetrical, there is no facial asymmetry. Hearing is intact bilaterally to normal conversation
volume. Tongue palate and uvula are midline. Sternocleidomastoid strengths are full bilaterally. Motor strengths are 5/5 bilateral upper and lower extremities on medical research [place] scale. There is no drift or involuntary movement noted. Deep
tendon reflexes are 2+ bilateral upper and lower extremities and Babinski is absent bilaterally. Sensations of pain, touch, temperature and vibration are intact and bilaterally symmetrical. There was no extinction noted on double simultaneous
stimulation. Coordination is intact by finger to nose bilaterally.
Neuro Imaging: CT head with right anterior basal ganglia hypodensity most likely representing leukomalacia rather than chronic ischemic stroke, no hemorrhage or masses
Impressions
History and examination are reassuring that the noted hypodensity on the right subcortical region of the CT head very likely represents a chronic and most likely benign finding, likely this is a longstanding leukomalacia as his clinical history and
examination are not supportive of an ischemic stroke to the right basal ganglia.
I do note he has significant short-term memory loss and the patient's family relates that he had a new diagnosis of dementia which is very likely early to mild Alzheimer's disease based on prominent short-term amnesia seen.
Agree with anticoagulation for atrial fibrillation
Recommendations:
1. Continue with current anticoagulation currently he is on heparin infusion and I have no objections to moving him towards apixaban when felt appropriate
2. Reassured family and the patient about the finding on the CT head noncontrast
3. Further care for the recently diagnosis of Alzheimer's dementia in the outpatient setting not going to recommend any memory aid medications to start at this time
Discussed patient care with: Patient and his family, cardiology
--- NOTE | 2024-05-08 13:44 | W.PN.UPDATE ---
Addendum entered and electronically signed by JOSE LUIS Conklin 05/08/24 17:18:
Discussed case with . We discussed the importance of Eliquis twice daily especially the month after cardioversion (and moving forward). She will help make sure he takes all of his medicines, which she reports he normally does.
Addendum entered and electronically signed by JOSE LUIS Conklin 05/08/24 14:07:
will stop aspirin
Original Note:
Update Note
Progress Note Update
Per neuro, okay for OAC. Stop heparin tonight and start Eliquis. We will arrange for FIONA/CV tomorrow. I updated patient's son with patient's permission. Patient and son agreeable to plan. He will pass info on to his mom (Alex's ) and she will
let us know if she has any questions (as noted I attempted to call her earlier today). RN updated. labor service representative charge aware of plan.
--- NOTE | 2024-05-08 13:58 | CM ---
Addendum entered by SHERRI Persaud 05/08/24 14:48:
I met w/ patient and spouse at bedside to update on copay info.
Both are aware of estimated copay.
Free 30 d coupon placed in chart.
Original Note:
Priced Eliquis thru patient's insurance plan; [facility]- [phone] ID# [id number]. Estimated copay for Eliquis is $247/first month due to patient still requiring to meet a remainder $200 deductible. Once met, cost will be $47/month. I can provide a
free 30 d coupon to cover first month.
[2024-05-08 14:45] LABS: Glucose - Point of Care 128 mg/dl (70-99)
[2024-05-08 17:19] LABS: Glucose - Point of Care 150 mg/dl (70-99)
--- NOTE | 2024-05-08 18:04 | PTCARENOTE ---
Pt pulled out IV x2 this evening. He said it was wrapped around his monitor and he became frustrated and pulled it out. Pt reminded that we need his IV to give his medication. He was very apologetic. Iv restarted.
[2024-05-08] MEDS: ELIQUIS 5 MG PO (20:02)
[2024-05-08 22:02] LABS: Glucose - Point of Care 117 mg/dl (70-99)
[2024-05-08] MEDS: DETROL 1 MG PO (22:17)
[2024-05-08] MEDS: FLOMAX 0.4 MG PO (22:17)
--- NOTE | 2024-05-08 23:12 | PTCARENOTE ---
Received patient at change of shift. Heparin running at 1400 units/hr and Cardizem running at 10 mg/hr in left forearm. Patient is alert and oriented, but forgetful. BP 127/82, HR high 90s. No complaint of dizziness or palpitations. Bed alarm on for
safety. Reinforced to call the nurse for assistance. Call rivas within reach. NPO at midnight for FIONA/CV. Patient was on phone with son and this RN gave update per patient's request.
Heparin was D/c'd at 2000 per order and Eliquis started. Educated patient on importance of oral anticoagulants.
Cardizem was increased to 15 mg/hr at 2255 because HR was steadily sitting >100. BP stable.
[2024-05-09 03:29] VITALS: BMI 43.2
[2024-05-09 03:34] VITALS: BP 109/71
[2024-05-09] MEDS: CARDIZEM 125 IV (05:10)
--- NOTE | 2024-05-09 05:58 | PTCARENOTE ---
Patient rested well. Wore CPAP until 0320. BP stable. HR controlled on Cardizem 15mL/hr. Bed alarm on. Reinforced calling the nurse for assistance to the bathroom.
[2024-05-09 06:49] VITALS: BP 133/73
[2024-05-09 06:53] LABS: Glucose - Point of Care 156 mg/dl (70-99)
[2024-05-09 06:54] VITALS: BP 113/75; BP 133/73; BP 92/59; PULSE 70; PULSE 84; PULSE 91
[2024-05-09 06:58] VITALS: BP 113/75
[2024-05-09 07:01] VITALS: BP 92/59
[2024-05-09] MEDS: CELEXA 10 MG PO (08:27)
[2024-05-09] MEDS: CRESTOR 20 MG PO (08:27)
[2024-05-09] MEDS: ELIQUIS 5 MG PO (08:27)
[2024-05-09] MEDS: NOVOLOG FLEXPEN-LOW RESISTANCE 1 UNITS SC (08:28)
--- NOTE | 2024-05-09 09:55 | PTCARENOTE ---
Received patient this morning resting in bed. IV cardizem infusing at 15mg/hr, remains in AF. NPO this morning, given eliquis with a sip of water. Patient seen by Dr. Duval and taken for his FIONA/CV.
--- NOTE | 2024-05-09 10:02 | W.PN.CD ---
Today's Communication / Plan
-
continue eliquis
FIONA/DCCV today
Impression / Plan
-
Afib with RVR:
-new diagnosis; type and onset are unclear
-TTE 05/08: EF 60-65%, aortic sclerosis
-on IV diltiazem- transition to PO today
-[id number] score is 4 for age, HTN, and DM. Eliquis 5mg bid has been started
-FIONA/DCCV today
Obesity:
-would benefit from weight loss
BRANDON:
-reports compliance with CPAP- continue
Daily ETOH:
-I told him best practice is no ETOH moving forward
HTN:
-monitor on diltiazem
-stop amlodipine
Physical Exam
Vital Signs/Labs
Vital Signs
Temp Pulse Resp BP Pulse Ox
98.0 F 75 18 92/59 96
05/09/24 06:45 05/09/24 07:30 05/09/24 06:45 05/09/24 07:01 05/09/24 07:00
05/08/24 05/09/24 05/10/24
06:59 06:59 06:59
Actual Weight 125.9 kg 125 kg
05/08/24 04:43
05/08/24 04:43
PT 13.9 Sec (11.4-14.6) 05/07/24 20:03
INR 1.06 05/07/24 20:03
APTT Cancelled 05/08/24 19:00
Magnesium 2.0 mg/dl (1.6-2.3) 05/08/24 04:43
Triglycerides 247 mg/dl (10-149) H 05/08/24 04:43
LDL Cholesterol, Calc 46 mg/dl 05/08/24 04:43
VLDL Cholesterol, Calc 49 mg/dl (0-30) H 05/08/24 04:43
HDL Cholesterol 33 mg/dl 05/08/24 04:43
TSH 5.97 uIU/ml (0.47-4.68) H 05/08/24 04:43
Free T4 1.19 ng/dl (0.78-2.19) 05/08/24 04:43
LAB Results
05/07/24
20:03
Troponin I < 0.012
Physical Exam
Constitutional: No acute distress
EENT: Moist mucous membranes
Cardiovascular: Pedal edema is absent, JVD pressure is normal, Systolic murmur absent and Rhythm/rate is irregular
Respiratory: Respiratory effort normal and Lungs clear to auscul.
GI: Soft and Distention absent
Neuro/Psych: Alert
Data Reviewed
-
Date of Service: May 09, 2024
EKG: Other (Tele: A fib 90s-100s)
Echo: Report Reviewed by me
Labs: Labs Reviewed by me
--- NOTE | 2024-05-09 10:55 | W.PN.UPDATE ---
Update Note
Progress Note Update
successful DCCV to NSR
continue eliquis 5mg bid
start diltiazem 180mg PO daily
amlodipine has been stopped
discharge planning: we will arrange for outpatient follow up for patient
--- NOTE | 2024-05-09 11:31 | CM ---
CM following for DC planning needs.
Met w/ spouse at bedside. Pt. was off floor for procedure.
DC plan remains for home with family, no needs.
Will remain available as needed for DC plans.
[2024-05-09 11:47] VITALS: BP 138/59
[2024-05-09 12:08] LABS: Glucose - Point of Care 149 mg/dl (70-99)
[2024-05-09] MEDS: NOVOLOG FLEXPEN-LOW RESISTANCE SC (12:22)
[2024-05-09] MEDS: CARDIZEM CD 180 MG PO (12:23)
[2024-05-09] MEDS: LASIX 40 MG PO (12:23)
[2024-05-09] MEDS: FLUSH (NSS) 1 FLUSH IV (12:24)
[2024-05-09] MEDS: AMARYL 1 MG PO (12:24)
--- NOTE | 2024-05-09 12:27 | W.PN.HOSP.TC ---
Today's Communication/Plan
-
Cleared by cardiology for discharge today
Assessment / Plan
Assessment / Plan
HPI: 79y M with PMH significant for hypertension, DM-II, BRANDON on CPAP and new diagnosis / work-up of dementia who presented to ED for evaluation of rapid heart rate. Patient was in outpatient PT today when he was noted to have tachycardia and
hypotension. He was referred to his PCP who evaluated him and appreciated irregular tachycardia by exam. Patient was then referred to the ED where he was found to be in A-Fib with rapid ventricular response.
#New onset rapid atrial fibrillation
Echo: LV ejection fraction is 60-65%. Normal regional wall motion.
Normal right ventricular size and function.
Aortic sclerosis without stenosis.
Status post heparin drip, Cardizem drip
Appreciate cardiology input, status post FIONA guided cardioversion on 05/09, currently on normal sinus rhythm
Medically stable for discharge on Eliquis and Cardizem
Follow-up with cardiology in the office, and PCP in 1 week
# Elevated TSH
TSH elevated at 5.97, free T4 normal
Patient is 79 years old, and upper limit of normal for TSH in 79 y/o is 7.5
Would recommend repeating thyroid function test in 4-6 weeks with PCP
#Benign essential hypertension
Permanently discontinue amlodipine since patient is now on Cardizem
#Abnormal CT
Appreciate neurology input, hypodensity on the right subcortical region likely is chronic, and most likely benign finding
Not supportive for stroke
#New diagnosis of dementia
Appreciate neurology input, does not recommend memory aid medications at this point
Outpatient follow-up
#Type 2 diabetes
A1C 6.9
Continue home glimepiride, sliding scale insulin, carb controlled diet
#Hyperlipidemia
Continue statin
#BPH
Continue Flomax and trospium
#Obesity due to excess calories
Affects all aspects of care
DVT prophylaxis�heparin drip, followed by Eliquis
Full code
Updated at bedside 05/09
Physical Exam
General: Morbidly obese, no acute distress
HEENT: Normocephalic, Atraumatic, EOMI, MMM
Respiratory: Clear to Auscultation bilaterally
Cardiac: RRR, normal S1/S2
GI: Soft, Nontender, Nondistended, Normal Bowel Sounds
Extremities: No Clubbing, Cyanosis, or Edema
Neuro: Nonfocal/Grossly Intact
Psych: Calm, Cooperative
Derm: No Visible lesions
Anticipated Discharge: Today
Subjective/Interval History
-
Date of Service: May 09, 2024
Patient seen after cardioversion. He reports his shortness of breath with activity has resolved. No chest pain, no palpitations. No fever, no vomiting.
Objective Data
-
Labs:
Laboratory Results
05/08/24
19:00
APTT Cancelled
Vital Signs:
Vital Signs
Temp Pulse Resp BP Pulse Ox
98.0 F 75 18 92/59 96
05/09/24 06:45 05/09/24 07:30 05/09/24 06:45 05/09/24 07:01 05/09/24 07:00
I&O
05/08/24 05/09/24 05/10/24
06:59 06:59 06:59
Intake Total 150 / 150
Balance 150 / 150
--- NOTE | 2024-05-09 12:29 | PTCARENOTE ---
Patient returned from FIONA/CV at 1145, AAO and in SR. VS monitored as per MD order and remain stable. Given PO dose of cardizem, waiting for lunch. at the bedside.
--- NOTE | 2024-05-09 13:27 | W.DCSUMMARY ---
Discharge Summary
Discharge Data
Date of Admission: 05/07/24
Date of Discharge: 05/09/24
-
Pending Results: No
Hospital Course
Discharge diagnosis:
New onset rapid atrial fibrillation
Elevated thyroid-stimulating hormone
Benign essential hypertension
Abnormal head imaging
New diagnosis of dementia
Type 2 diabetes
Hyperlipidemia
Benign prostatic hypertrophy
Obesity due to excess calories
Consults: Cardiology, neurology
Head CT:
No evidence for acute intracranial hemorrhage.
Leukomalacia is present. In the white matter lateral to the anterior body of the right lateral ventricle, there is a slightly greater degree of decreased density when compared to the left. Most likely this represents asymmetric leukomalacia.
However, differential consideration of a focal area of white matter infarction. If there is high clinical concern for acute to subacute infarction and further imaging evaluation is desired, consideration for MRI of the brain.
Paranasal sinus disease as described.
Procedures:
05/09/2024 FIONA guided cardioversion
Hospital course:
79-year-old male with a past medical history of morbid obesity, BPH, hyperlipidemia, type 2 diabetes, hypertension, newly diagnosed dementia was admitted for new onset rapid atrial fibrillation. Patient was treated with IV Cardizem and IV heparin
drip. He was seen in conjunction with cardiology. His heparin drip was transitioned to Eliquis 5 mg twice a day. He underwent FIONA guided cardioversion on 05/09/2024, and remained in normal sinus rhythm. Since he has started on Eliquis, his aspirin
81 mg is discontinued. His IV Cardizem drip was converted to diltiazem 180 mg p.o. daily. His amlodipine is discontinued.
Patient has recently diagnosed dementia. Head CT in the emergency room shows leukomalacia, however there was consideration for possible white matter infarction. Patient was seen in conjunction with neurology, who states that the hypodensity in the
right subcortical region is chronic, and most likely a benign finding. No further imaging is recommended.
Patient had an elevated TSH of 5.97, free T4 is normal. He is 79 years old, and this could be normal for his age. Recommend repeating thyroid function test with his primary care doctor in 4-6 weeks.
Patient is medically stable and cleared by cardiology for discharge. He needs to follow-up with his primary care doctor in 1 week, as well as cardiology in the office in 2-3 weeks.
Disposition: Home self-care
Discharge planning: Required 39-minute
Discharge Plan
-
Patient Disposition: Home (Routine Discharge)
Discharge Diagnosis/Procedures: New onset rapid atrial fibrillation, recently diagnosed dementia, elevated TSH, obesity, obstructive sleep apnea, benign essential hypertension
Condition: Fair
Diet: Low Fat, Low Cholesterol and Diabetic, Carb Controlled
Activity: As tolerated
Blood Work: Recommend repeating thyroid function test in 4-6 weeks with PCP
Activity Restrictions/Additional Instructions:
TSH elevated at 5.97, free T4 normal
Patient is 79 y/o , and upper limit of normal for TSH in 79 y/o is 7.5
Would recommend repeating thyroid function test in 4-6 weeks with PCP.
Cardiology recommends alcohol cessation.
Follow-up with cardiology in the office in 2-3 weeks, and your primary care doctor in 1 week.
Instructions: Atrial Fibrillation (DC)
Referrals:
Sonu Duval MD [Active] - in two to three weeks
Jose Lezama MD [Family Provider] - in one week
Prescriptions:
New
diltiazem HCl 180 mg Capsule,Extended Release 24hr
180 mg PO DAILY Qty: 30 0RF
Eliquis 5 mg Tablet
5 mg PO BID Qty: 60 0RF
Continued
citalopram 10 MG tablet
10 mg PO DAILY
tamsulosin 0.4 MG capsule
0.4 mg PO HS
fluticasone propionate 1 SPRAY spray,suspension
1 spray intranasal DAILYPRN PRN (Reason: congestion/ allergies )
rosuvastatin 20 MG tablet
20 mg PO DAILY
glimepiride 1 MG tablet
1 mg PO DAILY Qty: 30 0RF
furosemide 40 mg Tablet
40 mg PO DAILY
trospium 20 mg Tablet
20 mg PO HS
ibuprofen 200 mg Tablet
800 mg PO Q8HPRN PRN (Reason: mild pain)
vitamin K2 (MK-4) 500 mcg tablet
500 mcg PO DAILY
Discontinued
aspirin 81 MG tablet,delayed release (DR/EC)
81 mg PO DAILY
amlodipine 5 MG tablet
5 mg PO DAILY Qty: 30 0RF
Discharge Orders:
Discharge Patient (As Directed); Ordered 05/09/24
Ordered By: Tom Lebron
Care Plan Goals
Care Plan Goals:
Problem: Readiness for enhanced knowledge related to diagnosis and treatment plan
Goal: Understand your diagnosis and treatment plan needs, including medications if applicable.
Instructions: Know your diagnosis, underlying causes and treatment plan options, including medications if applicable. Consult with your health care team to learn about your diagnosis and treatment plan, including medications if applicable.
Discharge Date and Time
Discharge Date/Time: 05/09/24 14:18
Print Language: FRISIAN
--- NOTE | 2024-05-09 14:30 | PTCARENOTE ---
Patient remains in SR. Reviewed discharge instructions with the patient and his and they state their understanding. Patient discharged home with his , aware of new prescriptions and follow up appointments recommended.
== END 2024-05-09 14:18 | disposition home or self-care (01) | DRG 309 ==
LOC: IVU 22:55
PROVIDERS: Emergency Medicine; Internal Medicine; Registered Nurse; ADMITTING PHYSICIAN Hospitalist; ATTENDING PHYSICIAN Family Medicine; CONSULT PHYSICIAN Student in an Organized Health Care Education/Training Program; EMERGENCY PHYSICIAN Emergency Medicine; FAMILY PHYSICIAN Family Medicine; OTHER PHYSICIAN Internal Medicine
PROC: 5A2204Z Restoration of Cardiac Rhythm, Single (ICD-10-PCS; 2024-05-09)
PROC: B24BZZ4 Ultrasonography of Heart with Aorta, Transesophageal (ICD-10-PCS; 2024-05-09)
DX: I48.91 Unspecified atrial fibrillation (principal); F02.A3 Dementia in other diseases classified elsewhere, mild, with mood disturbance; F02.A4 Dementia in other diseases classified elsewhere, mild, with anxiety; Z68.41 Body mass index [BMI] 40.0-44.9, adult; G30.0 Alzheimer's disease with early onset; E11.22 Type 2 diabetes mellitus with diabetic chronic kidney disease; I12.9 Hypertensive chronic kidney disease with stage 1 through stage 4 chronic kidney disease, or unspecified chronic kidney disease; N18.9 Chronic kidney disease, unspecified; G47.33 Obstructive sleep apnea (adult) (pediatric); N40.0 Benign prostatic hyperplasia without lower urinary tract symptoms; E03.8 Other specified hypothyroidism; I95.9 Hypotension, unspecified; R93.0 Abnormal findings on diagnostic imaging of skull and head, not elsewhere classified; J84.10 Pulmonary fibrosis, unspecified; K21.9 Gastro-esophageal reflux disease without esophagitis; I70.0 Atherosclerosis of aorta; E78.00 Pure hypercholesterolemia, unspecified; E66.01 Morbid (severe) obesity due to excess calories; Z87.891 Personal history of nicotine dependence; Z88.2 Allergy status to sulfonamides; Z79.82 Long term (current) use of aspirin; Z79.84 Long term (current) use of oral hypoglycemic drugs; Z79.899 Other long term (current) drug therapy; Z96.653 Presence of artificial knee joint, bilateral
CPT/HCPCS: 70450; 80048; 80053; 80061; 82962; 83036; 83735; 84439; 84443; 84484; 85025; 85027; 85610; 85730; 93005; 93306; 93312; 93320; 93325; 94660; 96365; 96367; 97163; 97167; 97535; 99291; Q9950

== ENCOUNTER → 2024-06-02 10:40 | Outpatient (REF) | payer MEDICARE, SELFPAY ==
[2024-06-02 11:14] LABS: % Basophils 1.1 % (0-2); % Eosinophils 4.8 % (0-6); % Immature Granulocytes 0.9 % (0-0.5); % Monocytes 9.4 % (1.7-9.3); % Neutrophils 64.8 % (42.2-75.2); Absolute Basophils 0.1 10^3/uL (0-0.2); Absolute Eosinophils 0.3 10^3/uL (0-0.7); Absolute Immature Granulocytes 0.1 10^3/uL (0-0.05); Absolute Lymphocytes 1.3 10^3/uL (1.2-3.4); Absolute Monocytes 0.7 10^3/uL (0.1-0.6); Absolute Neutrophils 4.6 10^3/uL (1.4-6.5); Hematocrit 34.6 % (39.0-52.0); Hemoglobin 12.1 g/dL (13.0-18.0); Mean Corpuscular Hgb 35.5 pg (27.0-31.0); Mean Corpuscular Volume 101.5 fL (80.0-94.0); Mean Platelet Volume 9.3 fL (7.4-10.4); Nucleated Red Blood Cells % 0 % (-); Platelet Count 245 10^3/uL (130-400); Red Blood Cell Count 3.41 10^6/uL (4.70-6.10); Red Cell Dist. Width 12.9 % (11.5-14.5); White Blood Cell Count 7.1 10^3/uL (4.8-10.8)
[2024-06-02 12:46] LABS: Folate 10.1 ng/ml (2.76-20); Vitamin B12 648 pg/ml (239-931)
[2024-06-04 20:36] LABS: Myelin Assoc Glycoprotein Ab 14895 TU (0-999)
[2024-06-05 01:16] LABS: Alpha 1 Globulin 0.33 g/dL (0.19-0.46); Alpha 2 Globulin 0.93 g/dL (0.48-1.05); Free Kappa Light Chains,Quant 28.82 mg/L (3.30-19.40); Free Lambda Light Chains,Quant 84.77 mg/L (5.71-26.30); IgA 177 mg/dL (68-408); IgG 866 mg/dL (768-1632); IgM 1343 mg/dL (35-263); Immunofixation Electrophoresis IFE Done; Kappa/Lambda Fr Light Ratio 0.34 (0.26-1.65); Monoclonal Protein 0.94 g/dL (<=0.00); Total Protein-Electrophoresis 7.1 g/dL (6.3-8.2)
== END ==
LOC: REG 10:40
PROVIDERS: ATTENDING PHYSICIAN Internal Medicine Hematology & Oncology; FAMILY PHYSICIAN Family Medicine
DX: D47.2 Monoclonal gammopathy (principal); C88.0 Waldenstrom macroglobulinemia; G30.0 Alzheimer's disease with early onset
CPT/HCPCS: 36415; 82607; 82746; 82784; 83516; 83521; 84155; 84165; 85025; 86334

== ENCOUNTER → 2024-07-15 12:15 | Outpatient (REF) | payer MEDICARE, SELFPAY ==
[2024-07-15 13:35] LABS: % Eosinophils 2.9 % (0-6); % Immature Granulocytes 0.8 % (0-0.5); % Lymphocytes 17.8 % (20.5-51.1); % Monocytes 10.3 % (1.7-9.3); % Neutrophils 67.2 % (42.2-75.2); Absolute Basophils 0.1 10^3/uL (0-0.2); Absolute Eosinophils 0.2 10^3/uL (0-0.7); Absolute Immature Granulocytes 0.1 10^3/uL (0-0.05); Absolute Lymphocytes 1.3 10^3/uL (1.2-3.4); Absolute Monocytes 0.8 10^3/uL (0.1-0.6); Absolute Neutrophils 4.9 10^3/uL (1.4-6.5); Hemoglobin 12.9 g/dL (13.0-18.0); Mean Corp Hgb Conc. 33.9 g/dL (33.0-37.0); Mean Platelet Volume 9.3 fL (7.4-10.4); Nucleated Red Blood Cells % 0 % (-); Platelet Count 232 10^3/uL (130-400); Red Blood Cell Count 3.69 10^6/uL (4.70-6.10); Red Cell Dist. Width 12.9 % (11.5-14.5); White Blood Cell Count 7.3 10^3/uL (4.8-10.8)
[2024-07-15 14:13] LABS: ALT (SGPT) 27 U/L (0-50); AST (SGOT) 28 U/L (17-59); Albumin 4.2 g/dl (3.5-5.0); Alkaline Phosphatase 113 U/L (38-126); Blood Urea Nitrogen 17 mg/dl (9-20); Calcium 9.1 mg/dl (8.4-10.2); Carbon Dioxide 25 mmol/L (22-30); Chloride 104 mmol/L (98-107); Glucose 113 mg/dl (70-99); Potassium 4.7 mmol/L (3.5-5.1); Sodium 140 mmol/L (135-145); Total Bilirubin 0.4 mg/dl (0.2-1.3); Total Protein 7.5 g/dl (6.3-8.2); eGFR > 60.00
[2024-07-16 07:34] LABS: Glycohemoglobin (HgbA1c) 6.4 % (4.0-5.6)
== END ==
LOC: REG 12:15
PROVIDERS: ATTENDING PHYSICIAN Family Medicine
DX: E11.69 Type 2 diabetes mellitus with other specified complication (principal); R53.1 Weakness
CPT/HCPCS: 36415; 80053; 83036; 85025

== ENCOUNTER → 2024-08-22 10:54 | Outpatient (REF) | payer MEDICARE, SELFPAY ==
[2024-08-22 12:20] LABS: % Basophils 1.4 % (0-2); % Immature Granulocytes 0.7 % (0-0.5); % Lymphocytes 22.4 % (20.5-51.1); % Neutrophils 61.5 % (42.2-75.2); Absolute Basophils 0.1 10^3/uL (0-0.2); Absolute Eosinophils 0.3 10^3/uL (0-0.7); Absolute Lymphocytes 1.3 10^3/uL (1.2-3.4); Absolute Monocytes 0.5 10^3/uL (0.1-0.6); Absolute Neutrophils 3.5 10^3/uL (1.4-6.5); Hematocrit 35.9 % (39.0-52.0); Hemoglobin 12.1 g/dL (13.0-18.0); Mean Corp Hgb Conc. 33.7 g/dL (33.0-37.0); Mean Corpuscular Hgb 34.3 pg (27.0-31.0); Mean Corpuscular Volume 101.7 fL (80.0-94.0); Mean Platelet Volume 9.6 fL (7.4-10.4); Nucleated Red Blood Cells % 0 % (-); Platelet Count 240 10^3/uL (130-400); Red Blood Cell Count 3.53 10^6/uL (4.70-6.10); Red Cell Dist. Width 13.2 % (11.5-14.5); White Blood Cell Count 5.8 10^3/uL (4.8-10.8)
[2024-08-22 13:18] LABS: ALT (SGPT) 26 U/L (0-50); AST (SGOT) 20 U/L (17-59); Alkaline Phosphatase 109 U/L (38-126); Blood Urea Nitrogen 13 mg/dl (9-20); Calcium 9.2 mg/dl (8.4-10.2); Carbon Dioxide 26 mmol/L (22-30); Chloride 103 mmol/L (98-107); Glucose 154 mg/dl (70-99); Potassium 4.4 mmol/L (3.5-5.1); Sodium 142 mmol/L (135-145); Total Bilirubin 0.3 mg/dl (0.2-1.3); Total Protein 7.4 g/dl (6.3-8.2); eGFR > 60.00
== END ==
LOC: REG 10:54
PROVIDERS: ATTENDING PHYSICIAN Internal Medicine Hematology & Oncology
DX: D47.2 Monoclonal gammopathy (principal); C88.00 Waldenstrom macroglobulinemia not having achieved remission
CPT/HCPCS: 36415; 80053; 82232; 82784; 83516; 83521; 84155; 84165; 85025; 86334

== ENCOUNTER → 2025-01-02 14:20 | Outpatient (REF) | payer MEDICARE, SELFPAY ==
[2025-01-02 15:24] LABS: % Basophils 0.9 % (0-2); % Eosinophils 2.3 % (0-6); % Immature Granulocytes 0.6 % (0-0.5); % Lymphocytes 17.2 % (20.5-51.1); % Monocytes 12.2 % (1.7-9.3); % Neutrophils 66.8 % (42.2-75.2); Absolute Basophils 0.1 10^3/uL (0-0.2); Absolute Eosinophils 0.2 10^3/uL (0-0.7); Absolute Immature Granulocytes 0.1 10^3/uL (0-0.05); Absolute Lymphocytes 1.4 10^3/uL (1.2-3.4); Absolute Neutrophils 5.3 10^3/uL (1.4-6.5); Hematocrit 36.6 % (39.0-52.0); Hemoglobin 12.5 g/dL (13.0-18.0); Mean Corp Hgb Conc. 34.2 g/dL (33.0-37.0); Mean Corpuscular Hgb 34.5 pg (27.0-31.0); Mean Corpuscular Volume 101.1 fL (80.0-94.0); Mean Platelet Volume 9.6 fL (7.4-10.4); Nucleated Red Blood Cells % 0 % (-); Platelet Count 225 10^3/uL (130-400); Red Blood Cell Count 3.62 10^6/uL (4.70-6.10); Red Cell Dist. Width 13.1 % (11.5-14.5); White Blood Cell Count 7.9 10^3/uL (4.8-10.8)
[2025-01-02 16:02] LABS: ALT (SGPT) 20 U/L (0-50); AST (SGOT) 19 U/L (17-59); Albumin 4.3 g/dl (3.5-5.0); Alkaline Phosphatase 110 U/L (38-126); Blood Urea Nitrogen 15 mg/dl (9-20); Calcium 9.5 mg/dl (8.4-10.2); Carbon Dioxide 26 mmol/L (22-30); Chloride 101 mmol/L (98-107); Glucose 207 mg/dl (70-99); Sodium 139 mmol/L (135-145); Total Bilirubin 0.6 mg/dl (0.2-1.3); Total Protein 7.8 g/dl (6.3-8.2); eGFR > 60.00
[2025-01-04 19:42] LABS: Beta-2-Microglobulin 3.2 mg/L (<=3.0)
== END ==
LOC: REG 14:20
PROVIDERS: ATTENDING PHYSICIAN Internal Medicine Hematology & Oncology; FAMILY PHYSICIAN Family Medicine
DX: D47.2 Monoclonal gammopathy (principal); C88.00 Waldenstrom macroglobulinemia not having achieved remission
CPT/HCPCS: 36415; 80053; 82232; 82784; 83521; 84155; 84165; 85025; 86334

== ENCOUNTER → 2025-06-24 15:36 | Outpatient (REF) | payer MEDICARE, SELFPAY ==
[2025-06-24 16:15] LABS: Hematocrit 35.5 % (39.0-52.0); Hemoglobin 12.0 g/dL (13.0-18.0); Mean Corp Hgb Conc. 33.8 g/dL (33.0-37.0); Mean Corpuscular Volume 101.1 fL (80.0-94.0); Nucleated Red Blood Cells % 0 % (-); Platelet Count 226 10^3/uL (130-400); Red Cell Dist. Width 12.5 % (11.5-14.5)
[2025-06-24 16:33] LABS: ALT (SGPT) 22 U/L (0-50); AST (SGOT) 19 U/L (17-59); Albumin 4.1 g/dl (3.5-5.0); Alkaline Phosphatase 99 U/L (38-126); Blood Urea Nitrogen 20 mg/dl (9-20); Calcium 9.2 mg/dl (8.4-10.2); Carbon Dioxide 27 mmol/L (22-30); Chloride 106 mmol/L (98-107); Glucose 130 mg/dl (70-99); Potassium 4.5 mmol/L (3.5-5.1); Sodium 139 mmol/L (135-145); Total Protein 7.7 g/dl (6.3-8.2); eGFR > 60.00
[2025-06-24 17:21] LABS: Microalb - Urine Creatinine 274.600 mg/dl
[2025-06-24 18:17] LABS: Microalbumin, Random Urine 42.6 mg/dl (0.6-1.7)
[2025-06-25 13:29] LABS: Glycohemoglobin (HgbA1c) 7.1 % (4.0-5.6)
== END ==
LOC: REG 15:36
PROVIDERS: ATTENDING PHYSICIAN Family Medicine; REFERRING PHYSICIAN Internal Medicine Hematology & Oncology
DX: E11.69 Type 2 diabetes mellitus with other specified complication (principal)
CPT/HCPCS: 36415; 80053; 82043; 82232; 82570; 82784; 83036; 83521; 84155; 84165; 85025; 86334

== ENCOUNTER → 2025-06-25 11:53 | Outpatient (REF) | payer MEDICARE, SELFPAY ==
[2025-06-25 13:12] LABS: HDL Cholesterol 46 mg/dl; LDL Cholesterol, Calculated 74 mg/dl; Very Low Density Lipoprotein 21 mg/dl (0-30)
== END ==
LOC: REG 11:53
PROVIDERS: ATTENDING PHYSICIAN Family Medicine
DX: E78.2 Mixed hyperlipidemia (principal)
CPT/HCPCS: 36415; 80061